=== PATIENT | female | born 1955 | race Caucasian/White ===

== ENCOUNTER 2017-03-16 06:54 | Inpatient (IN) | payer OTHER ==
[~2017-03-16] VITALS: Ht 170.2 cm; Wt 106.1 kg
[2017-03-16] MEDS ORDERED: VENTOLIN HFA 1818 GM INH (07:04)
[2017-03-16 07:26] LABS: ABSOLUTE BASOPHILS 0.1 thou/uL (0.0-0.2); ABSOLUTE LYMPHOCYTES 0.9 thou/uL (0.8-5.3); ABSOLUTE NEUTROPHILS 4.8 thou/uL (1.6-8.1); BASOPHILS 0.7 %; EOSINOPHILS 0.4 %; HEMATOCRIT 45.7 % (37.0-47.0); HEMOGLOBIN 14.8 gm/dL (12.0-15.0); LYMPHOCYTES 13.8 %; MCH 28.6 pg (26.0-34.0); MCHC 32.3 g/dL (28.0-37.0); MCV 88.6 fL (80.0-100.0); MONOCYTES 15.1 %; MPV 10.3 fl. (7.2-11.1); NUCLEATED RBCS 0 /100WBC; PLATELET COUNT* 128 thou/uL (150-400); RBC 5.16 mil/uL (4.20-5.00); RDW-CV 14.2 % (10.5-14.5); WBC 6.9 thou/uL (4.0-11.0)
[2017-03-16 07:32] LABS: ANION GAP 7 mmol/L (7-16); BUN 23 mg/dL (7-18); CALCIUM 8.5 mg/dL (8.5-10.1); CHLORIDE 100 mmol/L (98-107); CO2 33 mmol/L (21-32); GLUCOSE 120 mg/dL (70-99); POTASSIUM 4.5 mmol/L (3.5-5.1); SODIUM 140 mmol/L (136-145)
[2017-03-16 07:33] LABS: APTT 33.2 Seconds (25.0-31.3); PROTIME 9.8 Seconds (9.20-11.50)
[2017-03-16 07:43] LABS: ALBUMIN 3.9 g/dL (3.4-5.0); ALKALINE PHOSPHATASE 81 U/L (46-116); LIPASE 148 U/L (73-393); NT-PRO BRAIN NAT PEPTIDE 107 pg/mL (<300); SGOT 35 U/L (15-37); SGPT 35 U/L (30-65); TOTAL BILIRUBIN 0.4 mg/dL (<0.1-1.0); TOTAL PROTEIN 7.6 g/dL (6.4-8.2); TROPONIN-I LEVEL <0.06 ng/mL (<0.06)
--- NOTE | 2017-03-16 08:11 | NUR ---
PT NOT WANTING TO BE ADMITTED.. O2 REMOVED AND PT SAT DROPPED TO 84%. AT BEDSIDE TALKING TO PT.
--- NOTE | 2017-03-16 08:20 | NUR ---
PT PLACED BACK ON 4L AND SAT INCREASED TO 90%.
--- NOTE | 2017-03-16 11:36 | NUR ---
PT UP TO USE BATHROOM. PT NOW VERY SOA WITH A SAT IN THE 70'S DR JIM AT BEDSIDE, ORDERS OBTAINED, RT NOTIFIED. PT SAT IS NOW 88 AFTER SOME BREATHING EXERCISES AND O2 4L/NC.
[2017-03-16 11:42] LABS: BE 0.8 mmol/L (-2 to +3); HCO3 28.6 mmol/L (22.0-26.0); PO2 87.3 mmHg (75.0-100.0); pH 7.302 (7.340-7.450)
[2017-03-16 11:44] LABS: PCO2 59.2 mmHg (35.0-45.0)
--- NOTE | 2017-03-16 11:51 | EKG ---
[place] [address] ELECTROCARDIOGRAM REPORT Name: CYDNEY SORIA Room: [address] [place] [address] ADM IN [facility]#: [id number] Admission: 03/16/17 Attend Phys: Austin Marinelli, Discharge: Date of : 57 Report #: [id number] THIS REPORT FOR: //name// [facility] ED Test Date: 2017-03-16 Test Time: 07:35:20 Pat Name: CYDNEY SORIA Department: Room: [facility] Gender: F Liaison Officer: ANANTH : 1955 Requested By: Jatin Juan Order Number: [id number] MD: Fransisco Bond Measurements Intervals [place] Rate: 92 P: 79 NE: 102 QRS: 59 QRSD: 146 T: 51 QT: 369 QTc: 457 Interpretive Statements Sinus rhythm Ventricular premature complex Sinus pause with ventricular escape Short NE interval Right bundle branch block Artifact in lead(s) II,V1,V2,V3,V4,V5,V6 No previous ECG available for comparison Electronically Signed On 03-16-2017 11:50:53 FILM PROJECTOR OPERATOR by Fransisco Bond [email or web address] <ELECTRONICALLY SIGNED> By: Fransisco Bond MD, [facility] 03/16/17 1150 0735 0735 Fransisco Bond MD, [facility] /EPI
[2017-03-16 12:47] VITALS: BP 133/80
[2017-03-16 13:06] VITALS: BP 148/85
--- NOTE | 2017-03-16 13:53 | NUR ---
CALLED DR. CRAIG PATIENT WAS IN RESPIRATORY DISTRESS UPON ARRIVAL. SAT 70% ON 4L, RT IN PROCESS OF PLACING BIPAP. ER NURSE STATED SHE DID NOT TOLERATE AMBULATING TO BATHROOM IN ER AND SHE SHOULD ONLY USE BSC. HEART RATE IRREGULAR. REPEAT EKG ORDERED. PATIENT UNABLE TO SPEAK DUE TO SOB, BUT ADMISSION HISTORY WAS DONE BY RESOURCE PRIOR TO COMING TO FLOOR. DR. CRAIG WAS UNAWARE PATIENT WAS PLACED ON BIPAP, AND WOULD LIKE PATIENT ON TELEMETRY. PEARL FISHERMAN NOTIFIED. SAT 90% ON BIPAP CURRENTLY.
[2017-03-16 15:26] LABS: INFLUENZA B ANTIGEN None Detected (None Detect)
--- NOTE | 2017-03-16 15:27 | NUR ---
PATIENT TRANSFERRED TO TELE AT THIS TIME. REPORT GIVEN TO DONOVAN HICKEY AT 1430. PATIENT CURRENTLY REFUSING BIPAP STATING ITS NOT HELPING. SAT WAS 97% ON BIPAP. PATIENT PLACED ON 6L O2 TO KEEP SAT >92. PATIENT REFUSED BEDPAN AND WANT TO TRY BEDSIDE COMMODE, SAT 79% WITH 6L DURING ACTIVITY. PATIENT EDUCATED ON THE NEED TO USE THE BEDPAN. RT CURRENTLY GIVING PATIENT TREATMENT. PATIENT PLACED ON TELEMETRY. DR. CRAIG INFORMED OF SECOND EKG REPORT. MRSA,FLU, AND H1N1 SENT TO LAB.
[2017-03-16 15:40] VITALS: BP 141/69
[2017-03-16 19:19] LABS: BE 1.8 mmol/L (-2 to +3); HCO3 28.8 mmol/L (22.0-26.0); PO2 75.5 mmHg (75.0-100.0); pH 7.337 (7.340-7.450)
[2017-03-16 19:20] LABS: PCO2 54.9 mmHg (35.0-45.0)
--- NOTE | 2017-03-16 19:21 | NUR ---
PT TRANSFERRED TO ROOM 202 VIA BED AT APPROXIMATELY 1525 FROM ORTHO. REPORT RECEIVED FROM DONOVAN GUZMAN. PT ORIENTED TO ROOM AND CALL LIGHT. THIS RN AGREES WITH PREVIOUS DATA CENTER ENGINEER. SEPSIS SCREENING COMPLETE. PT SCREENED NEGATIVE. PT ON DROPLET PRECAUTIONS FOR POSITIVE INFLUENZA A. PT A&0X4. DENIES ANY PAIN AT THIS TIME. PT TRACING SR ON THE SATURATOR OPERATOR. PT ON 6L NC SAT 90-91%. PT REFUSES TO WEAR BIPAP. EDUCATION GIVEN. PT RECEIVING BREATHING TREATMENTS. PT STATES SHE DOESNT WEAR ANY OXYGEN AT HOME AND HAS BEEN DIAGNOSED WITH COPD FOR ABOUT 10+ YEARS. PT EDUCATED ON NEED TO WEAR BIPAP WITH COPD AND C02 LEVELS. PT STATES SHE MAY WEAR IT AFTER SHE EATS DINNER AND GOES TO THE BATHROOM. PT UP WITH 1 ASSIST TO BSC. OXYGEN SATURATION DECREASES WITH MINIMAL ACTIVITY. PT REFUSES TO USE BEDPAN. EDUCATION GIVEN. SPUTUM AND URINALYSIS NEEDS TO BE OBTAINED. IVF. PULMONARY CONSULT IN PLACE FOR SEVERE COPD.
[2017-03-16 23:53] VITALS: BP 128/77
[2017-03-17 04:06] VITALS: BP 143/83
--- NOTE | 2017-03-17 05:08 | NUR ---
ASSUMED CARE OF PT AT 1930, NURSING ASSESSMENT COMPLETED AT START OF SHIFT, PT VOICED NO CONCERNS, CONTINUES ON TELE MONITOR TRACING SINUS RHYTHM. PT ON 6L O2 VIA NC AT START OF SHIFT. PT WORE BIPAP FOR 2 1/2 HRS THIS SHIFT. PT EDUCATED ON IMPORTANCE OF USING BIPAP, PT REQUIRES FURTHER TEACHING AND ENCOURAGEMENT. HOURLY ROUNDING COMPLETED, CALL LIGHT WITHIN REACH. DENIES PAIN.
[2017-03-17 05:23] LABS: HEMATOCRIT 41.8 % (37.0-47.0); HEMOGLOBIN 13.5 gm/dL (12.0-15.0); MCH 28.5 pg (26.0-34.0); MCHC 32.3 g/dL (28.0-37.0); MCV 88.2 fL (80.0-100.0); MPV 10.1 fl. (7.2-11.1); RBC 4.74 mil/uL (4.20-5.00); RDW-CV 14.6 % (10.5-14.5); WBC 4.2 thou/uL (4.0-11.0)
[2017-03-17 05:50] LABS: ALBUMIN 3.4 g/dL (3.4-5.0); CALCIUM 8.2 mg/dL (8.5-10.1); POTASSIUM 5.2 mmol/L (3.5-5.1); TOTAL BILIRUBIN 0.4 mg/dL (<0.1-1.0); TOTAL PROTEIN 6.5 g/dL (6.4-8.2)
[2017-03-17 09:45] VITALS: BP 165/92
[2017-03-17 11:46] VITALS: BP 137/60
--- NOTE | 2017-03-17 12:00 | NUR ---
PT IN GARCIA'S POSITION IN BED. A & O X4. ASSESSMENT COMPLETE. SR ON OFFICE ASST. MEDS PER MAR. DYSPNEIC WITH ACTIVITY OF ANY TYPE. NEEDED ITEMS AND CALL LIGHT WITHIN REACH. HOURLY ROUNDING FOR PT SAFETY. DROPLET ISOLATION MAINTAINED.
--- NOTE | 2017-03-17 14:26 | NUR ---
CM ASSESSMENT: Pt is A&O. Resides at home wit her . 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 Independent with ADLs. No DME. Pt currently requiring 6L o2, dx of COPD, Pt does not wear home o2. Positive influenza A. No hx of HH or SNF. Goal is to return home once medically stable for dc. Following.
--- NOTE | 2017-03-17 15:56 | EKG ---
[place] [address] ELECTROCARDIOGRAM REPORT Name: CYDNEY SORIA Room: [address] ADM IN [facility]#: [id number] Admission: 03/16/17 Attend Phys: Austin Marinelli, Discharge: Date of : 57 Report #: [id number] THIS REPORT FOR: //name// [facility] Test Date: 2017-03-16 Test Time: 14:12:30 Pat Name: CYDNEY SORIA Department: Room: [facility] Gender: F Iv Therapy Nurse: SACHA : 1955 Requested By: Austin Marinelli Order Number: [id number] Reading MD: Donald Orta Measurements Intervals [place] Rate: 95 P: 93 NM: 105 QRS: 108 QRSD: 97 T: 64 QT: 363 QTc: 457 Interpretive Statements Sinus rhythm Short NM interval Right axis deviation Low voltage, precordial leads Baseline wander in lead(s) I,II,aVR,aVL,aVF,V1,V6 Compared to ECG 03/16/2017 07:35:20 no change Electronically Signed On 03-17-2017 15:56:03 POWDER MILL OPERATOR by Donald Orta [email or web address] <ELECTRONICALLY SIGNED> By: Donald Orta MD, [facility] 03/17/17 1556 1412 1412 Donald Orta MD, [facility] /EPI
[2017-03-17 16:00] VITALS: BP 141/64
[2017-03-17 20:50] VITALS: BP 147/83
[2017-03-18] VITALS: BP 170/86
[2017-03-18 03:25] LABS: BE 6.9 mmol/L (-2 to +3); HCO3 34.3 mmol/L (22.0-26.0); PO2 65.2 mmHg (75.0-100.0); pH 7.367 (7.340-7.450)
[2017-03-18 03:28] LABS: PCO2 61.1 mmHg (35.0-45.0)
[2017-03-18 04:00] VITALS: BP 134/77
[2017-03-18 05:05] LABS: HEMATOCRIT 40.7 % (37.0-47.0); HEMOGLOBIN 13.1 gm/dL (12.0-15.0); MCH 28.2 pg (26.0-34.0); MCHC 32.3 g/dL (28.0-37.0); MCV 87.5 fL (80.0-100.0); MPV 10.5 fl. (7.2-11.1); RBC 4.66 mil/uL (4.20-5.00); RDW-CV 14.1 % (10.5-14.5); WBC 8.1 thou/uL (4.0-11.0)
[2017-03-18 05:39] LABS: CALCIUM 8.4 mg/dL (8.5-10.1); MAGNESIUM 2.2 mg/dL (1.8-2.4); POTASSIUM 5.1 mmol/L (3.5-5.1)
--- NOTE | 2017-03-18 07:05 | NUR ---
PT IS ABLE TO COMMUNICATE HER NEEDS TO STAFF EFFECTIVELY. SHE HAS DENIED THE NEED FOR PAIN MEDICATION UP TO THIS TIME. SHE HAS REFUSED TO WEAR THE BIPAP OVERNIGHT WHILE SLEEPING; RT AND MD ARE AWARE.
--- NOTE | 2017-03-18 07:59 | CON ---
[address] [address] CONSULTATION Name: CYDNEY SORIA Room: [address] IN [facility].#: [id number] Admission: 03/16/17 Attend Phys: Austin Marinelli, Discharge: Date of : 57 Report #: [id number] THIS REPORT FOR: //name// CC: FAM physician/PCP Austin Marinelli DATE OF SERVICE: 03/17/2017 REFERRING PHYSICIAN: Austin Marinelli MD CHIEF COMPLAINT: Dyspnea. HISTORY OF PRESENT ILLNESS: The patient is a 61-year-old female who is a prior smoker. She quit 2 years ago, smoking 2 packs per day for 30 years. 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 They left on Friday, and she was not really feeling well at that time, and it was not until Friday that she began to have more problems in the sense that she was having chills, generally not feeling well. On , she felt better, but on Friday and Friday, her symptoms worsened. It got to a point where she was having nausea without vomiting, generalized aches and pains, chills. She developed a cough. Early Friday morning, she presented to the Emergency Room. She was admitted to the hospital. PAST MEDICAL HISTORY: Significant for chronic obstructive airways disease, tobacco abuse, hypertension, obesity. She has a history of tendinitis as well. ALLERGIES: SHE IS ALLERGIC TO PENICILLIN. REVIEW OF SYSTEMS: System review negative other than what is outlined above. She is denying numbness, tingling, headache, blurred vision, vomiting. She has had some nausea, but this has resolved. She has not had any abdominal discomfort. She denies diarrhea or constipation. She denies dysuria, hematuria, hematemesis. She has not had any tingling or weakness. MEDICATIONS: As an outpatient have consisted of a high blood pressure medication as well as an albuterol inhaler. ADDITIONAL PAST MEDICAL HISTORY: Significant for hypertension. ALLERGIES: PENICILLIN. FAMILY HISTORY: Positive for brother having double lung transplant for COPD. Mother had cancer on 2 separate occasions. The patient is unaware what type. Father from COPD as well. She has a brother [place] [address] CONSULTATION Name: CYDNEY SORIA Room: [address] IN [facility].#: [id number] Admission: 03/16/17 Attend Phys: Austin Marinelli, Discharge: Date of : 57 Report #: [id number] SOCIAL HISTORY: She is and lives with her . She is a smoker as outlined above. CURRENT MEDICAL REGIMEN: DuoNeb aerosol treatments, potassium and magnesium replacement, Solu-Medrol, Levaquin, Tamiflu. PHYSICAL EXAMINATION: VITAL SIGNS: Blood pressure 137/60, respiratory rate of 18, nonlabored, pulse rate 88, temperature 97 degrees. Her weight 233 pounds. GENERAL APPEARANCE: Awake, alert. She is oriented. HEAD: Atraumatic. EYES: Pupils are round, equal, reactive. Sclerae and conjunctivae are clear. Extraocular muscles are intact. ORAL CAVITY: Moist. No lesions. NOSE: Nasal passages are patent. NECK: No adenopathy or JVD. CHEST: Diminished breath sounds. No audible wheezes or rhonchi. CARDIOVASCULAR: Regular rhythm. ABDOMEN: Obese. No organomegaly or tenderness. EXTREMITIES: There is no evidence of edema, clubbing or cyanosis. SKIN: Warm and dry, no rash. There is no evidence of diaphoresis. LYMPHATICS: Negative for adenopathy. Pulses equal bilaterally. NEUROLOGIC: Moves all 4 extremities. Cranial nerves intact. LABORATORY DATA: Electrolytes: Sodium 143, potassium 5.2, chloride 105, CO2 of 33, BUN of 18, creatinine 1.0 Liver functions are normal. EGFR of 57. Admission proBNP of 107. Troponin less than 0.06 on admission. Hemoglobin and hematocrit of 13.5 and 42, with a white count of 4200. The influenza A rapid screen was positive. Respiratory viral panel is pending. Arterial blood gases obtained in the Emergency Room on initial evaluation revealed a pH 7.34, pCO2 of 55, pO2 of 76, bicarbonate 28 while on 5 liters of O2. MEDICAL IMAGING STUDIES: Chest x-ray does not reveal any acute infiltrate. Some bibasilar atelectatic changes otherwise. Blood cultures no growth to date. ASSESSMENT: 1. Flu syndrome with influenza A. 2. Chronic obstructive airways disease with exacerbation. 3. Chronic hypercapnic hypoxemic respiratory failure. RECOMMENDATION: Repeat arterial blood gas will be obtained tomorrow. Continue with the current medical regimen. We will go ahead and add Brovana and budesonide as additional aerosol therapy, Bertrand Freed will be added [place] [address] CONSULTATION Name: CYDNEY SORIA Room: [address] IN [facility]#: [id number] Admission: 03/16/17 Attend Phys: Austin Marinelli, Discharge: Date of : 57 Report #: [id number] cough and additional cough medication as well. Aspiration precautions should be initiated. <ELECTRONICALLY SIGNED> By: Mariano Baca MD 03/18/17 0759 1412 1515Alnava Fragoso MD /nt
[2017-03-18 08:15] VITALS: BP 146/73
--- NOTE | 2017-03-18 08:15 | NUR ---
ASSUMED PT. CARE AND RECEIVED REPORT AT 0730. PT. A/OX4, VSS, MONITOR ON TRACING SR. WITH PVC. PT. DENIES CURRENT PAIN. STATES BREATHING IS CONSISTANT WITH YESTERDAY. PT. FOUND WITH OXYGEN TUBING IN PLACE, BUT NO OXYGEN ON. PT. STATED SHE JUST RECEIVED A BREATHING TREATMENT. PT. 76% ON RA, TITRATED BACK UP TO 5L TO OBTAIN 90%. FULL ASSESSMENT COMPLETED, REFER TO CHARTING. CALL LIGHT IN REACH, WILL CONTINUE WITH PLAN OF CARE.
--- NOTE | 2017-03-18 12:00 | NUR ---
PT. REQUESTING TO TAKE SHOWER. DISCUSSED AMBULATING IN [place] TOLERATED TO SHOWER ROOM, PT. AGREEABLE. PT. AMBULATED JUST AROUND NURSING STATION BEFORE SHE REQUIRED TO SIT AND RECOVER, LABORED BREATHING. PT. BECOMES EXTREMELY SOB WITH EVEN SMALL AMOUNT OF ACTIVITY. PT. WAS ABLE TO COMPLETE SHOWER WITH ASSISTANCE.
[2017-03-18 12:30] VITALS: BP 129/77
--- NOTE | 2017-03-18 15:40 | NUR ---
PT. TRANSFERED TO ROOM 308. REPORT GIVEN TO CODEY MAN. PT.ISAAC VIRGEN CONTACTED VIA PHONE, NO ANSWER MESSAGE LEFT WITH TRANSFER INFO.
[2017-03-18 16:00] VITALS: BP 142/69
[2017-03-18 20:00] VITALS: BP 154/101
[2017-03-19] VITALS: BP 150/91
[2017-03-19 02:07] LABS: ADENOVIRUS Negative (Negative); INFLUENZA A Positive (Negative); INFLUENZA B Negative (Negative); METAPNEUMOVIRUS Negative (Negative); PARAINFLUENZA 1 Negative (Negative); PARAINFLUENZA 2 Negative (Negative); PARAINFLUENZA 3 Negative (Negative); RHINOVIRUS Negative (Negative); RSV A Negative (Negative); RSV B Negative (Negative)
[2017-03-19 04:00] VITALS: BP 131/86
--- NOTE | 2017-03-19 07:52 | NUR ---
PATIENT RESTED WELL THROUGH THE NIGHT. UP AD CLAUDIA TO BSC. DENIES PAIN OR NEEDS. REPORT GIVEN TO ONCOMING NURSE. WILL MONITOR.
[2017-03-19 08:30] VITALS: BP 138/86
--- NOTE | 2017-03-19 11:56 | NUR ---
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 CM CONTACTED LESLIE WATSON TO INFORM OF THE REFERRAL AND FAXED PATIENTS CLICAL INFO. CM WILL NEED TO FAX REST AND ACTIVITY SATS AND O2 ORDER WHEN AVAILABLE. CM WILL REMAIN AVAILABLE TO ASSIST AND FOLLOW NEEDED.
[2017-03-19 12:05] VITALS: BP 132/63
--- NOTE | 2017-03-19 13:39 | NUR ---
PATIENT IS ALERT AND ORIENTED TODAY VERY PLEASANT. UP AD CLAUDIA IN ROOM WITH OXYGEN TUBING EXTENTION. VITAL SIGNS ARE STABLE ON 4 LITERS OF OXYGEN THROUGH NASAL CANNULA. NO COMPLAINTS OF ANY PAIN TODAY. CALL LIGHT IS IN REACH, CALLS FOR HELP IF NEEDED. WILL CONTINUE MONITOR.
[2017-03-19 15:43] VITALS: BP 144/79
[2017-03-19 19:50] VITALS: BP 150/84
[2017-03-20] VITALS: BP 150/77
[2017-03-20 05:33] LABS: HEMATOCRIT 44.2 % (37.0-47.0); HEMOGLOBIN 14.2 gm/dL (12.0-15.0); MCH 28.2 pg (26.0-34.0); MCHC 32.1 g/dL (28.0-37.0); MCV 87.9 fL (80.0-100.0); MPV 10.2 fl. (7.2-11.1); RBC 5.03 mil/uL (4.20-5.00); RDW-CV 14.3 % (10.5-14.5); WBC 12.6 thou/uL (4.0-11.0)
[2017-03-20 05:54] LABS: CALCIUM 8.8 mg/dL (8.5-10.1); MAGNESIUM 2.5 mg/dL (1.8-2.4); POTASSIUM 4.5 mmol/L (3.5-5.1)
--- NOTE | 2017-03-20 08:19 | NUR ---
PATIENT RESTED WELL THROUGH THE NIGHT. UP AD CLAUDIA TO BSC. DENIES PAIN OR NEEDS. REMAINS IN ISOLATION FOR FLU+. RT DECREASED O2 TO 2L/NC THIS AM. REPORT GIVEN TO ONCOMING NURSE. WILL MONITOR.
--- NOTE | 2017-03-20 10:58 | NUR ---
Following through ar. Spoke with Dr Velasco, Pt will need a portable neb at ar. Spoke with Nirmala at [facility] Pt's insurance will cover a portable neb and a concentrator (not a portable concentrator). Dr Velasco is hopeful that Pt does not need o2 at ar.
[2017-03-20 15:50] VITALS: BP 153/78
--- NOTE | 2017-03-20 16:35 | NUR ---
PT TO TRANSFER TO 3W. REPORT CALLED TO ADRIANNA MAN, AND PT CURRENTLY BEING TRANSPORTED VIA BED.
--- NOTE | 2017-03-20 19:22 | NUR ---
PATIENT TO ROOM 318 THIS AFTERNOON FROM TELE. A/O X 4, DENIES C/O, 3LO2NC, MILD EXP WHEEZE. UP AD CLAUDIA, AGREE WITH PRIOR ASSESSMENT, CALL LIGHT IN REACH. D/C PLAN IS TO D/C WITH TOMORROW.
[2017-03-20 23:59] VITALS: BP 153/88
--- NOTE | 2017-03-21 05:16 | NUR ---
PT SLEPT WELL WITHOUT COMPLAINTS. UP INDEP TO BSC TO VOID. O2 2L NC. R FA SL. NO LABS THIS MORNING. SHIPPING WEIGHER LOOSE COUGH HEARD. RT TX GIVEN. REMAINS ON DROPLET ISOLATION FOR +FLU. AOX4, ABLE TO USE CALL LITE AND MAKE NEEDS KNOWN.
[2017-03-21 07:34] VITALS: BP 150/97
--- NOTE | 2017-03-21 11:16 | NUR ---
FLOR followed up with Nirmala from [facility] who plans to bring the nebulizer to pt hospital room today. Pending results as to whether or not pt will need oxygen at dc and Nirmala will need pt exercise oximetry testing and order for oxygen if needed. The concentrator could be delivered which apparently can be plugged in pt/ truck but pt will not receive portable concentrator/tanks. Reportedly, pt is traveling from [place], unable to be able to pick pt up today, possible for pt to dc Wednesday 03/22. SW to continue to follow to assist with finalizing safe dc plan.
[2017-03-21 16:03] VITALS: BP 114/93
--- NOTE | 2017-03-21 19:03 | NUR ---
RAPID DESAT WHEN AMBULATING ON RA. A/O X 4, ESTER MEDS AND CARES WITHOUT ADR. DENIES PAIN, UP AD CLAUDIA, CURRENTLY ESTER 2LO2NC, CONT PURSED LIP BREATHING. ANTICIPATING DISCHARGE TOMORROW. CALL LIGHT IN REACH, CONT POC.
[2017-03-22 00:23] VITALS: BP 135/50
--- NOTE | 2017-03-22 07:44 | NUR ---
PATIENT ALERT AND ORIENTED. VITALS STABLE. ON 2L OF OXYGEN. WAS NOT ABLE TO WEAN OXYGEN DOWN LAST NIGHT. NONPRODUCTIVE COUGH. UP INDPENDENTLY. PLANS TO DISCHARGE HOME THIS MORNING. HOURLY ROUNDS. NURSING WILL CONTINUE TO MONITOR.
[2017-03-22 08:00] VITALS: BP 153/89
[2017-03-22 12:48] VITALS: BP 153/89
--- NOTE | 2017-03-22 14:32 | NUR ---
Pt continues to need home o2 at dc, but is adamently refusing it. will send a RX with Pt at dc and understands the risk that she is taking by not wearing it as ordered. Pt unsure if her will arrive to pick her up today, Pt will be discharged to home.
[2017-03-22] MEDS ORDERED: DUONEB 2.5-0.5 M3 ML INH (14:36)
[2017-03-22] MEDS ORDERED: BROVANA15 MCG/2 M INH (14:36)
[2017-03-22] MEDS ORDERED: PREDNISONE 10 M10 MG PO (14:36)
[2017-03-22] MEDS ORDERED: BENZONATATE100 MG PO (14:36)
[2017-03-22] MEDS ORDERED: SINGULAIR 10 MG10 M1 PO (14:36)
[2017-03-22] MEDS ORDERED: LEVAQUIN 750 M750 MG PO (14:36)
[2017-03-22] MEDS ORDERED: PULMICORT0.5 MG/2 M INH (14:36)
[2017-03-22 21:00] VITALS: BP 136/79
[2017-03-23] VITALS: BP 128/68
[2017-03-23 01:06] VITALS: BP 136/79
[2017-03-23 01:11] VITALS: BP 136/79
--- NOTE | 2017-03-23 06:02 | NUR ---
ASSUMED PATIENT CARE AT 1900. PATIENT REMAINS ON O2. SAT AT 95%. INSISTENT ON GOING HOME LATER TODAY. NO IV AT THIS TIME. PATIENT ALERT AND ORIENTED TIMES FOUR. INDPENDENT WITH AMBULATION. MINOR COMPLAINTS OF PAIN WHEN SHE COUGHS. PLASTICS AND COMPOSITES INSPECTOR AND HOURLY ROUNDING COMPLETED DOCUMENTED.
== END 2017-03-23 07:43 | disposition home or self-care (01) | DRG 193 ==
LOC: M.ERS 06:54 → M.2W 08:43 → M.TBA-ER 08:43 → M.ORTHSURG 12:53 → M.2W 15:24 → M.3W 03-20 16:49
PROVIDERS: Family Medicine; Internal Medicine; Internal Medicine Pulmonary Disease; ADMIT Family Medicine
PROC: 5A09357 Assistance with Respiratory Ventilation, Less than 24 Consecutive Hours, Continuous Positive Airway Pressure (ICD-10-PCS; principal; 2017-03-22)
DX: J10.00 Influenza due to other identified influenza virus with unspecified type of pneumonia (principal); J96.21 Acute and chronic respiratory failure with hypoxia; J96.22 Acute and chronic respiratory failure with hypercapnia; J44.1 Chronic obstructive pulmonary disease with (acute) exacerbation; J44.0 Chronic obstructive pulmonary disease with (acute) lower respiratory infection; I10 Essential (primary) hypertension; Z87.891 Personal history of nicotine dependence; Z88.0 Allergy status to penicillin; Z80.9 Family history of malignant neoplasm, unspecified; Z82.5 Family history of asthma and other chronic lower respiratory diseases; Z83.3 Family history of diabetes mellitus